=== PATIENT | female | born 1990 | race Caucasian/White ===

== ENCOUNTER 2018-12-11 09:29 | Emergency (ER) | payer OTHER ==
[2018-12-11 09:36] VITALS: BP 124/88; PULSE 81; TEMP 97.8; BMI 31.6
--- NOTE | 2018-12-11 09:53 | PDOC ---
History of Present Illness - General Chief Complaint: Injury Stated Complaint: NEEDLE STICK Time Seen by Provider: 12/11/18 09:51 History Source: Patient (L index finger needle stick with an unsured needle in the lab, tetanus UTD) Exam Limitations: No Limitations Past History - Travel Traveled outside of the country in the last 30 days: No Close contact w/someone who was outside of country & ill: No - Past Medical History Allergies/Adverse Reactions: Allergies Allergy/AdvReac Type Severity Reaction Status Date / Time No Known Allergies Allergy Verified 12/11/18 09:36 Home Medications: Ambulatory Orders NK [No Known Home Medication] 12/11/18 COPD: No - Suicide/Smoking/Psychosocial Hx Smoking History: Never smoked Review of Systems - Review of Systems Able to Perform ROS?: Yes Is the patient limited Setswana proficient: Yes Constitutional: No: Chills, Fever Musculoskeletal: No: Joint Swelling, Joint Stiffness Integumentary: Yes: Other (L index finger needle stick). No: Change in Color, Change in Hair/Nails, Dryness, Erythema, Flushing, Pruritus *Physical Exam - Vital Signs Last Vital Signs Temp Pulse Resp BP Pulse Ox 97.8 F 81 18 124/88 100 12/11/18 09:33 12/11/18 09:33 12/11/18 09:33 12/11/18 09:33 12/11/18 09:33 - Physical Exam General Appearance: Yes: Nourished Musculoskeletal: positive: Normal Inspection Extremity: positive: Normal Capillary Refill, Normal Inspection, Normal Range of Motion, Other (L index finger: FROM, no bleeding or deformity noted in finger pad). 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 Pt is accompanied by preceptor Maritza. Her tetanus is UTD. She did wash finger prior to arrival to ED. no complaints Exam: no obvious abrasion or bleeding, FROM in finger s/s of infection discussed 12/11/18 12:33 *DC/Admit/Observation/Transfer Diagnosis at time of Disposition: Needle stick injury of finger Qualifiers: Encounter type: initial encounter Qualified Code(s): S61.239A - Puncture wound without foreign body of unspecified finger without damage to nail, initial encounter - Discharge Dispostion Disposition: HOME Condition at time of disposition: Good Decision to Admit order: No - Referrals - Patient Instructions Additional Instructions: Keep area dry and clean, please return to the ER if redness, pain occurs - Post Discharge Activity
== END 2018-12-11 10:02 | disposition home or self-care (01) ==
LOC: JERFT 09:29
DX: S61.231A Puncture wound without foreign body of left index finger without damage to nail, initial encounter (principal); W46.0XXA Contact with hypodermic needle, initial encounter; Y93.89 Activity, other specified; Y92.238 Other place in hospital as the place of occurrence of the external cause; Y99.8 Other external cause status
CPT/HCPCS: 99281-25